=== PATIENT | male | born 1990 | race Caucasian/White ===

== ENCOUNTER 2019-02-03 13:15 | Emergency (ER) | payer SELFPAY ==
[~2019-02-03] VITALS: Ht 182.9 cm; Wt 100.0 kg
[2019-02-03 15:06] VITALS: BP 117/59
== END 2019-02-03 15:09 | disposition home or self-care (01) ==
LOC: ER 13:15
DX: S93.401A Sprain of unspecified ligament of right ankle, initial encounter (principal); S00.81XA Abrasion of other part of head, initial encounter; W19.XXXA Unspecified fall, initial encounter; Y93.89 Activity, other specified; Y92.89 Other specified places as the place of occurrence of the external cause; Y99.8 Other external cause status
CPT/HCPCS: 99283